=== PATIENT | female | born 1940 | race Caucasian/White ===

== ENCOUNTER → 2018-09-01 | Outpatient (CLI) | payer MEDICARE, OTHER ==
[~2018-09-01] MED LIST: ETODOLAC400 MG PO; FUROSEMIDE40 MG PO; LISINOPRIL10 MG PO; LORAZEPAM0.5 MG PO; TYLENOL WITH C1 EACH PO
--- NOTE | 2018-09-01 15:40 | Diagnostic Imaging Report ---
Exam: Left and right hip 2 views each History: Pain Comparison: None. Findings: No fracture or malalignment. Mild degenerative arthrosis of the hips. 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 Impression: No acute osseous abnormality Mild degenerative arthrosis of the hips Signed by: Dr. Rodo Yeh M.D. on 09/01/2018 3:37 PM
== END ==
LOC: RAD 14:37
PROVIDERS: ATTEND Neurological Surgery
DX: M25.552 Pain in left hip (principal); M25.551 Pain in right hip; M16.12 Unilateral primary osteoarthritis, left hip
CPT/HCPCS: 73522